=== PATIENT | female | born 1955 | race Caucasian/White ===

== ENCOUNTER → 2017-10-04 | Outpatient (CLI) | payer BC ==
[~2017-10-04] MED LIST: ALEV220T26 PO; ASPI81TA PO; BREO1INH INH; CLOP75TA2 PO; LISI-542 PO; METO1TAB33 PO; NICO7DIS2 TD; SIMV20TA2 PO; SUDA30TA PO
[2017-10-04 14:04] LABS: BASO # 0.1 10^3/uL (0.0-0.2); BASO % 0.7 % (0.0-1.0); EOS # 0.1 10^3/uL (0.0-0.50); EOS % 0.5 % (0.0-3.0); IMMATURE GRANULOCYTE % 0.4 % (0-0); LYMPH # 2.2 10^3/uL (1.5-4.5); LYMPH % 22.9 % (24.0-44.0); MEAN CORPUSCULAR HEMOGLOBIN 31.6 pg (27.0-33.0); MEAN CORPUSCULAR VOLUME 95.6 fl (80.0-96.0); MONO # 0.8 10^3/uL (0.0-0.8); MONO % 7.9 % (0.0-5.0); NEUTROPHILS # 6.6 10^3/uL (1.8-7.7); NEUTROPHILS % 67.6 % (36.0-66.0); PLATELET COUNT, AUTOMATED 469 10^3/uL (150-450); RED CELL DISTRIBUTION WIDTH 12.5 % (11.5-14.5); WHITE BLOOD COUNT 9.8 10^3/uL (4.0-10.0)
== END ==
LOC: M WUC 10:37
PROVIDERS: ATTEND Physician Assistant
DX: K29.00 Acute gastritis without bleeding (principal); N39.0 Urinary tract infection, site not specified

== ENCOUNTER → 2018-01-14 | Outpatient (CLI) | payer BC, SELFPAY ==
[~2018-01-14] MED LIST changes: +ACETAMINOPHEN 325 MG TAB As Ordered; +ACETAMINOPHEN TAB 650MG DOSE (2X325MG) PO; -ALEV220T26 PO; -ASPI81TA PO; -BREO1INH INH; -CLOP75TA2 PO; +FUROSEMIDE 20 MG/2 ML VIAL (J1940) As Ordered; +FUROSEMIDE 20 MG/2 ML VIAL (J1940) IV; -LISI-542 PO; -METO1TAB33 PO; -NICO7DIS2 TD; -SIMV20TA2 PO; -SUDA30TA PO; +diphenhydrAMINE 25 MG CAP As Ordered; +diphenhydrAMINE 25 MG CAP PO
[2018-01-14 17:22] LABS: IMMEDIATE SPIN CROSSMATCH 1 2
== END ==
LOC: M RROUT 12:37
DX: D64.9 Anemia, unspecified (principal)
CPT/HCPCS: 36430

== ENCOUNTER 2018-02-03 10:31 | Day surgery (SDC) | payer BC ==
[2018-02-03] MEDS ORDERED: NS 1,000 ML IV (10:45)
[2018-02-03] MEDS ORDERED: fentaNYL 100 MCG/2 ML INJECTION (J3010) As Ordered (12:56)
[2018-02-03] MEDS ORDERED: LIDOCAINE 2% INJ 100 MG/5 ML SDV (FOR ANES.) As Ordered (12:56)
[2018-02-03] MEDS ORDERED: PROPOFOL 200 MG/20 ML VIAL As Ordered (12:56)
[2018-02-03] MEDS ORDERED: LABETALOL HCL 100 MG/20 ML VIAL As Ordered (13:33)
== END 2018-02-03 14:54 | disposition home or self-care (01) ==
LOC: M OPP 10:31
DX: D50.9 Iron deficiency anemia, unspecified (principal); K44.9 Diaphragmatic hernia without obstruction or gangrene; K31.89 Other diseases of stomach and duodenum; Z86.010 Personal history of colon polyps; E78.00 Pure hypercholesterolemia, unspecified; K21.9 Gastro-esophageal reflux disease without esophagitis; R00.8 Other abnormalities of heart beat; F17.210 Nicotine dependence, cigarettes, uncomplicated; R55 Syncope and collapse; Z79.899 Other long term (current) drug therapy
CPT/HCPCS: 45378

== ENCOUNTER 2018-03-12 12:09 | Inpatient (IN) | payer BC ==
[2018-03-12 13:09] LABS: BASO # 0.1 10^3/uL (0.0-0.2); BASO % 0.7 % (0.0-1.0); EOS # 0.1 10^3/uL (0.0-0.50); EOS % 1.6 % (0.0-3.0); HEMATOCRIT 25.6 % (36.0-47.0); HEMOGLOBIN 8.2 g/dl (12.0-15.5); IMMATURE GRANULOCYTE % 0.1 % (0-3.0); LYMPH # 2.1 10^3/uL (1.5-4.5); MEAN CORPUSCULAR HEMOGLOBIN 28.6 pg (27.0-33.0); MEAN CORPUSCULAR VOLUME 89.2 fl (80.0-96.0); MONO # 0.6 10^3/uL (0.0-0.8); MONO % 9.4 % (0.0-5.0); NEUTROPHILS # 3.9 10^3/uL (1.8-7.7); NEUTROPHILS % 57.2 % (36.0-66.0); PLATELET COUNT, AUTOMATED 280 10^3/uL (150-450); RED BLOOD COUNT 2.87 10^6/uL (4.00-5.40); RED CELL DISTRIBUTION WIDTH 15.4 % (11.5-14.5); WHITE BLOOD COUNT 6.8 10^3/uL (4.0-10.0)
[2018-03-12 13:21] LABS: ALBUMIN 3.8 GM/DL (3.2-5.2); ALBUMIN/GLOBULIN RATIO 1.19 (1.00-1.93); ALKALINE PHOSPHATASE 97 U/L (45-117); ALT/SGPT 20 U/L (12-78); ANION GAP 7 MEQ/L (8-16); AST/SGOT 25 U/L (7-37); BILIRUBIN,TOTAL 0.4 MG/DL (0.2-1.0); BLOOD UREA NITROGEN 10 MG/DL (7-18); CALCIUM LEVEL 8.8 MG/DL (8.8-10.2); CARBON DIOXIDE LEVEL 26 MEQ/L (21-32); CHLORIDE LEVEL 108 MEQ/L (98-107); CREATININE FOR GFR 0.83 MG/DL (0.55-1.30); GLOMERULAR FILTRATION RATE > 60.0 (>45); GLUCOSE, FASTING 119 MG/DL (70-100); POTASSIUM SERUM 3.8 MEQ/L (3.5-5.1); SODIUM LEVEL 141 MEQ/L (136-145)
[2018-03-12 13:24] LABS: CK-MB VALUE MASS 1.4 NG/ML (<3.6); CPK CREATINE PHOSPHOKINASE 87 U/L (26-192); TROPONIN I < 0.02 NG/ML (< 0.10)
[2018-03-12 13:27] LABS: ETHYL ALCOHOL (ETHANOL) < 0.003 % (0.000-0.010)
[2018-03-12 14:05] LABS: INR 1.19; PROTHROMBIN TIME 15.3 SECONDS (12.4-14.5)
[2018-03-12 14:06] LABS: PARTIAL THROMBOPLASTIN TIME 31.3 SECONDS (26.8-37.9)
[2018-03-12] MEDS ORDERED: ONDANSETRON 4MG/2ML VIAL (J2405) IV (15:15)
[2018-03-12] MEDS ORDERED: ACETAMINOPHEN TAB 650MG DOSE (2X325MG) PO (15:15)
[2018-03-12 15:26] LABS: RETIC HEMOGLOBIN EQUIVALENT 28.5 pg (24-36); RETICULOCYTE # 53.1 10^9/L (17-77); RETICULOCYTE % 1.9 % (0.5-1.5)
[2018-03-12 15:29] LABS: REASON FOR REVIEW ANEMIA / RBC MORPH; SLIDE REVIEW Report; SOURCE PERIPHERAL SMEAR
[2018-03-12 15:39] LABS: FERRITIN 6 NG/ML (8-252); IRON (FE) 28 UG/DL (50-170); PERCENT SATURATION 5.6 % (13.2-45.0); TOTAL IRON BINDING CAPACITY 497 UG/DL (250-450)
[2018-03-12] MEDS ORDERED: MECLIZINE 25 MG TABLET PO (16:30)
[2018-03-12] MEDS ORDERED: OXAZEPAM 10 MG CAP PO (16:45)
[2018-03-12 17:01] LABS: IMMEDIATE SPIN CROSSMATCH 1 2
[2018-03-12 17:09] LABS: FREE THYROXINE INDEX 2.8 % (1.3-4.8); T UPTAKE 34 % (30-39); THYROXINE (T4) 8.2 UG/DL (4.5-12.0)
[2018-03-12] MEDS: amLODIPine 5 MG TAB PO (18:03)
[2018-03-12] MEDS: **hydrALAZINE** 10 MG TAB PO (19:00)
[2018-03-12 20:09] LABS: HEMATOCRIT 29.6 % (36.0-47.0); HEMOGLOBIN 9.9 g/dl (12.0-15.5)
[2018-03-12] MEDS: IRON DEXTRAN INJ 25 MG in NS 50 ML IV (20:58)
[2018-03-12] MEDS: ROSUVASTATIN 10 MG TAB (CRESTOR) PO (21:04)
[2018-03-12] MEDS: RIVAROXABAN 15 MG TAB (XARELTO) PO (21:04)
[2018-03-12] MEDS: IRON DEXTRAN INJ 75 MG in NS 100 ML IV (23:18)
[2018-03-13 00:10] LABS: HEMATOCRIT 29.8 % (36.0-47.0); HEMOGLOBIN 9.7 g/dl (12.0-15.5)
[2018-03-13 07:13] LABS: HEMATOCRIT 31.9 % (36.0-47.0); HEMOGLOBIN 10.3 g/dl (12.0-15.5)
[2018-03-13 07:33] LABS: ANION GAP 8 MEQ/L (8-16); BLOOD UREA NITROGEN 7 MG/DL (7-18); CALCIUM LEVEL 8.7 MG/DL (8.8-10.2); CARBON DIOXIDE LEVEL 25 MEQ/L (21-32); CHLORIDE LEVEL 110 MEQ/L (98-107); CREATININE FOR GFR 0.82 MG/DL (0.55-1.30); GLOMERULAR FILTRATION RATE > 60.0 (>45); GLUCOSE, FASTING 123 MG/DL (70-100); POTASSIUM SERUM 3.5 MEQ/L (3.5-5.1); SODIUM LEVEL 143 MEQ/L (136-145)
[2018-03-13] MEDS: CARVedilol 6.25 MG TAB PO (08:01)
[2018-03-13] MEDS: amLODIPine 5 MG TAB PO (08:01)
[2018-03-13] MEDS: ASPIRIN 81 MG CHEW TABLET PO (08:01)
[2018-03-13] MEDS ORDERED: OMEPRAZOLE 20 MG CAP PO (12:00)
[2018-03-13] MEDS ORDERED: ENALAPRIL MALEATE 10 MG TAB PO (12:00)
[2018-03-13] MEDS ORDERED: VITAMIN D 1,000 INTERNATIONAL UNITS TABLET PO (12:00)
[2018-03-14 10:55] LABS: FOLATE 21.2 NG/ML; VITAMIN B12 LEVEL 287 PG/ML
[2018-03-16 08:06] LABS: TRANSFERRIN 377 mg/dL (200-370)
== END 2018-03-13 10:23 | disposition home or self-care (01) | DRG 663 ==
LOC: M ED 12:09 → M ED INP 15:09 → M MSPAV 17:48
PROVIDERS: Emergency Medicine Pediatric Emergency Medicine
PROC: 30233N1 Transfusion of Nonautologous Red Blood Cells into Peripheral Vein, Percutaneous Approach (ICD-10-PCS; principal; 2018-03-12)
DX: D50.9 Iron deficiency anemia, unspecified (principal); I10 Essential (primary) hypertension; F10.10 Alcohol abuse, uncomplicated; J44.9 Chronic obstructive pulmonary disease, unspecified; F17.200 Nicotine dependence, unspecified, uncomplicated; Z86.73 Personal history of transient ischemic attack (TIA), and cerebral infarction without residual deficits; Z79.899 Other long term (current) drug therapy; Z79.82 Long term (current) use of aspirin; Z88.0 Allergy status to penicillin

== ENCOUNTER → 2018-04-19 | Outpatient (REF) | payer BC ==
[2018-04-19 13:05] LABS: IRON (FE) 24 UG/DL (50-170)
== END ==
LOC: M LAB REF 11:55
DX: D64.9 Anemia, unspecified (principal)
CPT/HCPCS: 83540

== ENCOUNTER → 2019-03-10 | Outpatient (REF) | payer BC ==
[~2019-03-10] MED LIST changes: -ACETAMINOPHEN 325 MG TAB As Ordered; -ACETAMINOPHEN TAB 650MG DOSE (2X325MG) PO; +ALEV220T26 PO; +ASPI81CH36 PO; +ASPI81CH49 PO; +BREO1INH INH; +CARV10CA PO; +CARV20CA PO; +CLOP75TA2 PO; +ENAL10TA2 PO; +FERR325T16 PO; -FUROSEMIDE 20 MG/2 ML VIAL (J1940) As Ordered; -FUROSEMIDE 20 MG/2 ML VIAL (J1940) IV; +HYDR12CA PO; +LISI-542 PO; +MECL-68 PO; +METO1TAB33 PO; +NICO7DIS2 TD; +OMEP40CA2 PO; +ROSU20TA4 PO; +SIMV20TA2 PO; +SUDA30TA PO; +VITA100067 PO; +VITA200038 PO; +XARE15TA PO; -diphenhydrAMINE 25 MG CAP As Ordered; -diphenhydrAMINE 25 MG CAP PO
== END ==
LOC: M LAB REF 15:24
PROVIDERS: ATTEND Nurse Practitioner Adult Health
DX: D64.9 Anemia, unspecified (principal)

== ENCOUNTER → 2019-06-07 | Outpatient (REF) | payer BC ==
[~2019-06-07] MED LIST changes: -ROSU20TA4 PO; +ROSU20TA5 PO
[2019-06-07 20:25] LABS: PERCENT SATURATION 37.9 % (13.2-45.0)
== END ==
LOC: M LAB REF 17:06
PROVIDERS: ATTEND Internal Medicine
DX: D64.9 Anemia, unspecified (principal)

== ENCOUNTER → 2022-06-25 | Outpatient (REF) | payer MEDICARE, BC ==
[~2022-06-25] MED LIST changes: +ASPI81CH32 PO; -ASPI81CH36 PO; +ENAL-36 PO; -ENAL10TA2 PO; +FERR324T21 PO; -FERR325T16 PO; -LISI-542 PO; +LISI5TAB11 PO; -MECL-68 PO; +MECL1TAB31 PO; -OMEP40CA2 PO; +OMEP40CA4 PO; -SIMV20TA2 PO; +SIMV20TA22 PO
[2022-06-25 13:17] LABS: HEMATOCRIT 49.7 % (36.0-47.0)
[2022-06-26 16:53] LABS: PERCENT SATURATION 17.5 % (13.2-45.0)
== END ==
LOC: M LAB REF 12:09
PROVIDERS: ATTEND Nurse Practitioner Adult Health
DX: D64.9 Anemia, unspecified (principal); J44.9 Chronic obstructive pulmonary disease, unspecified